=== PATIENT | male | born 1960 | race Caucasian/White ===

== ENCOUNTER 2019-08-13 01:45 | Inpatient (IN) | payer MEDICAID, OTHER ==
[~2019-08-13] VITALS: Ht 180.3 cm; Wt 70.4 kg
[2019-08-13] MEDS ORDERED: chlordiazePOXIDE 25mg capsule PO ONE (02:40)
[2019-08-13 03:02] LABS: BASOPHILS # (AUTO) 0.1 X10'3 (0-0.2); BASOPHILS % (AUTO) 0.6 % (0-1); EOSINOPHILS % (AUTO) 0.1 % (0-6); HEMATOCRIT 44.2 % (42.0-52.0); HEMOGLOBIN 15.4 g/dl (14.0-17.9); LYMPHOCYTES # (AUTO) 0.8 X10'3 (1.1-4.8); LYMPHOCYTES % (AUTO) 5.2 % (21-51); MEAN CORPUSCULAR HEMOGLOBIN 33.5 PG (27.0-31.0); MEAN CORPUSCULAR VOLUME 95.7 FL (78-98); MEAN PLATELET VOLUME 8.4 FL (7.4-10.4); MONOCYTES # (AUTO) 3.5 X10'3 (0-0.9); MONOCYTES % (AUTO) 21.6 % (2-12); NEUTROPHILS # (AUTO) 11.8 X10'3 (1.8-7.7); NEUTROPHILS % (AUTO) 72.5 % (42-75); PLATELET COUNT 330 X10'3 (140-440); RED BLOOD COUNT 4.62 X10'6 (4.70-6.10); RED CELL DISTRIBUTION WIDTH 13.2 % (11.5-14.5); WHITE BLOOD COUNT 16.3 X10'3 (4.5-11.0)
[2019-08-13 03:22] LABS: ALANINE AMINOTRANSFERASE 59 U/L (12-78); ALKALINE PHOSPHATASE 90 IU/L (46-116); ANION GAP 14 (8-16); ASPARTATE AMINO TRANSFERASE 56 U/L (10-37); BLOOD UREA NITROGEN 37 MG/DL (7-18); BUN/CREATININE RATIO 15.3 (5.4-32.0); CALCIUM 9.3 MG/DL (8.5-10.1); CHLORIDE 97 MMOL/L (99-107); CREATININE 2.42 MG/DL (0.60-1.10); GLUCOSE 97 MG/DL (70-104); POTASSIUM 3.3 MMOL/L (3.5-5.1); SODIUM 136 MMOL/L (135-145); TOTAL CARBON DIOXIDE 24.8 MMOL/L (24-32); eGFR 28 ML/MIN
--- NOTE | 2019-08-13 03:30 | NUR ---
Pt brought to overflow from ED after BIB [employer]. Pt disorganized and poor historian, often providing conflicting information. Pt states ge doesn't know how he got here, only he was in his home then had to go to the [place] "I had to start running from it, had to get away." Pt would not elaborate on what it was that he was running from, "Can't say". Pt has scrapes on arms, leg and chest, "Those are from tonight. I fell 12, maybe 15 times. It's the 'ole tuck n' roll, yeah know, 'sameer my ankle." IV started and labs obtained, Pt given Librium as alcohol withdrawal was initially suspected. Thought Process: Disorganized. Behavior: Cooperative. Pt denies psych hx and drug use. Denies allergies to any medication and states he doesn't take anything aside from flu medicine. Pt has a strong, intermittent cough that he states is from "getting over the flu a week ago." Medical Hx: R Ankle "needs replacement"; HTN "I take a 10mg pill." Pt is a poor historian. Pt has scrapes that are scabbed on his R Fernando, Bilateral Arms, and L chest - No signs of infection. No drainage. MH Hx: No known psych history Recreational Drugs: Denies all. Tox +: Amphetamines, THC. ETOH: States intake varies; "Could be 6 one evening, and then less later. Or even more." Social: Lives alone in [place] with his cat and dog. States he has a gf, Dhara, that lives in [place]. States he has children in [place] and [facility]. (Pt unable to provide contact infromation for stated connections.)
[2019-08-13 03:32] LABS: ETHANOL < 0.010 GM/DL (0.0-0.010)
[2019-08-13 03:52] LABS: URINE AMPHETAMINE SCREEN POSITIVE (Neg); URINE BARBITUATE SCREEN NEGATIVE (Neg); URINE BENZODIAZEPINES SCREEN NEGATIVE (Neg); URINE CANNABINOID SCREEN POSITIVE (Neg); URINE COCAINE SCREEN NEGATIVE (Neg); URINE METHADONE SCREEN NEGATIVE (Neg); URINE OPIATE SCREEN NEGATIVE (Neg); URINE PHENCYCLIDINE SCREEN NEGATIVE (Neg)
[2019-08-13] MEDS ORDERED: normal saline 1000ml 1,000 ML IV ONE (04:00)
[2019-08-13] MEDS ORDERED: CefTRIAXone/D5W-Rocephin 1gm 50 ML IV ONE (04:00)
[2019-08-13] MEDS ORDERED: azithromycin/NS 500mg/250ml 250 ML IV ONE (04:00)
[2019-08-13 04:26] LABS: CLARITY,URINE SLIGHTLY CLOUDY (Clear); GLUCOSE, URINE NEGATIVE (Neg); KETONES,URINE 15 mg/dl (Neg); LEUKOCYTE ESTERASE ,URINE NEGATIVE (Neg); NITRITES, URINE NEGATIVE (Neg); OCCULT BLOOD,URINE SMALL (Neg); PH,URINE 5.5 (4.8-8.0); PROTEIN,URINE NEGATIVE (Neg)
[2019-08-13 04:36] LABS: COLOR,URINE DARK YELLOW (Yellow); UA COLLECTION TYPE VOIDED
[2019-08-13 04:37] LABS: WBC,URINE 0-4 /HPF (0-4)
[2019-08-13 04:38] LABS: AMORPHOUS URATES 1+; BACTERIA,URINE FEW /HPF (Neg); HYALINE CASTS >30 /LPF (NEGATIVE); RBC,URINE 0-2 /HPF (0-2); SQUAMOUS EPITHELIAL CELL,UR FEW /LPF (FEW)
[2019-08-13 04:39] LABS: CAL OXALATE CRYSTALS FEW /HPF (NEGATIVE); COARSE GRANULAR CAST 0-3 /LPF (NEGATIVE); RENAL CELLS, URINE FEW /HPF; TRANSITIONAL EPI CELLS,URINE FEW /HPF
--- NOTE | 2019-08-13 04:43 | NUR ---
Pt transferred back to Main ED Bed #9 due to labs necessitating further testing.
[2019-08-13] MEDS ORDERED: NO HOME MEDS (04:48)
--- NOTE | 2019-08-13 04:55 | NUR ---
MOVED FROM OVERFLOW AREA TO BED 9 IN MAIN ER. PT TAKEN TO CT .
--- NOTE | 2019-08-13 05:39 | NUR ---
PT AWAITING HOSPITALIST
[2019-08-13] MEDS ORDERED: ondansetron/PF 4mg/2ml inj IV PRN (05:55)
[2019-08-13] MEDS ORDERED: potassium CL 10mEq/100ml bag 100 ML IV PRN (05:55)
[2019-08-13] MEDS ORDERED: potassium Cl 20 mEq SR tablet PO PRN ×2 (05:55)
[2019-08-13] MEDS ORDERED: magnesium Cl slow-release 64mg tablet PO PRN (05:55)
[2019-08-13] MEDS ORDERED: thiamine 100mg/ml 2ml inj. IV ONE (05:55)
[2019-08-13] MEDS ORDERED: magnesium 4gm in 100ml NS 100 ML IV PRN (05:55)
[2019-08-13] MEDS ORDERED: magnesium 2GM in 50ml NS 50 ML IV PRN (05:55)
[2019-08-13] MEDS: normal saline 1000ml 1,000 ML IV SCH ×3 (06:03→15:18)
[2019-08-13 07:15] LABS: PLATELET ESTIMATE NORMAL; TOTAL CELLS COUNTED 100
[2019-08-13] MEDS ORDERED: azithromycin 250mg tablet PO SCH (08:00)
[2019-08-13] MEDS: K and/or MAG REPLACEMENT MC SCH ×2 (08:00→20:00)
[2019-08-13] MEDS: heparin, porcine 5000 units/ml vial SQ SCH ×2 (08:28→19:20)
[2019-08-13] MEDS: potassium CL 10mEq/100ml bag 100 ML IV PRN ×4 (09:15→13:02)
--- NOTE | 2019-08-13 12:11 | NUR ---
Patient is sleeping. Respirations unlabored. NAD at this time.
--- NOTE | 2019-08-13 14:32 | NUR ---
Attempted to call report to Surgical Unit, no nurse assigned, asked to call back in 15 minutes.
--- NOTE | 2019-08-13 14:47 | NUR ---
Patient in room ED 9. I have received report from MAGDA Shaffer and had the opportunity to ask questions and assume patient care.
[2019-08-13 15:15] VITALS: BP 139/91
--- NOTE | 2019-08-13 15:55 | NUR ---
Pt arrived to the surgical floor at 1505 via gurney. Bed low and locked, call light placed within reach.
[2019-08-13 18:00] VITALS: BP 113/79
--- NOTE | 2019-08-13 18:15 | NUR ---
Problems reprioritized. Patient report given, questions answered & plan of care reviewed with MAGDA Chavez.
--- NOTE | 2019-08-13 23:57 | NUR ---
patient refusing vitals. will continue to monitor
[2019-08-14 05:25] LABS: BASOPHILS # (AUTO) 0.1 X10'3 (0-0.2); BASOPHILS % (AUTO) 0.9 % (0-1); EOSINOPHILS # (AUTO) 0.1 X10'3 (0-0.9); EOSINOPHILS % (AUTO) 0.9 % (0-6); HEMATOCRIT 38.4 % (42.0-52.0); HEMOGLOBIN 13.5 g/dl (14.0-17.9); LYMPHOCYTES # (AUTO) 1.4 X10'3 (1.1-4.8); LYMPHOCYTES % (AUTO) 15.7 % (21-51); MEAN CORPUSCULAR HEMOGLOBIN 33.9 PG (27.0-31.0); MEAN CORPUSCULAR HGB CONC 35.1 g/dL (33.0-36.5); MEAN CORPUSCULAR VOLUME 96.8 FL (78-98); MEAN PLATELET VOLUME 8.4 FL (7.4-10.4); MONOCYTES # (AUTO) 2.2 X10'3 (0-0.9); MONOCYTES % (AUTO) 25.1 % (2-12); NEUTROPHILS % (AUTO) 57.4 % (42-75); PLATELET COUNT 306 X10'3 (140-440); RED BLOOD COUNT 3.97 X10'6 (4.70-6.10); RED CELL DISTRIBUTION WIDTH 13.6 % (11.5-14.5); WHITE BLOOD COUNT 8.6 X10'3 (4.5-11.0)
[2019-08-14 06:06] LABS: PLATELET ESTIMATE NORMAL; TOTAL CELLS COUNTED 100
[2019-08-14 06:10] LABS: ALANINE AMINOTRANSFERASE 41 U/L (12-78); ALBUMIN 2.7 G/DL (3.4-5.0); ALBUMIN/GLOBULIN RATIO 0.8 (1.1-1.5); ALKALINE PHOSPHATASE 66 IU/L (46-116); ANION GAP 8 (8-16); ASPARTATE AMINO TRANSFERASE 36 U/L (10-37); BILIRUBIN,TOTAL 0.7 MG/DL (0.1-1.0); BLOOD UREA NITROGEN 14 MG/DL (7-18); BUN/CREATININE RATIO 17.9 (5.4-32.0); CALCIUM 8.1 MG/DL (8.5-10.1); CHLORIDE 107 MMOL/L (99-107); CREATININE 0.78 MG/DL (0.60-1.10); GLUCOSE 89 MG/DL (70-104); MAGNESIUM 1.7 MG/DL (1.5-2.4); POTASSIUM 3.6 MMOL/L (3.5-5.1); SODIUM 144 MMOL/L (135-145); TOTAL CARBON DIOXIDE 28.6 MMOL/L (24-32); TOTAL PROTEIN 5.9 G/DL (6.4-8.2); eGFR > 90 ML/MIN
--- NOTE | 2019-08-14 06:47 | NUR ---
Patient in room [facility]. I have received report from MAGDA PAZ and had the opportunity to ask questions and assume patient care.
[2019-08-14 07:00] VITALS: BP 135/83
[2019-08-14] MEDS: K and/or MAG REPLACEMENT MC SCH (08:00)
[2019-08-14] MEDS ORDERED: CefTRIAXone/D5W-Rocephin 1gm 50 ML IV SCH (08:00)
[2019-08-14] MEDS ORDERED: azithromycin 250mg tablet PO SCH (08:00)
[2019-08-14] MEDS: normal saline 1000ml 1,000 ML IV SCH (09:32)
[2019-08-14] MEDS: heparin, porcine 5000 units/ml vial SQ SCH (09:33)
[2019-08-14 11:00] VITALS: BP 144/89
[2019-08-14] MEDS ORDERED: LEVO500T2 PO (14:12)
--- NOTE | 2019-08-14 16:20 | NUR ---
Pt was previously on 5150/1798 while in hospital. He was then moved to surgical floor yesterday where 179/5150 is no longer valid per nursing sup/protocol. Pt decided to leave AMA, determined to get out of hospital. Security notified, Nursing sup notified. We were informed that patient cannot be held but security can follow pt down and [employer] can meet him at the door and re-evaluate need for new 5150. [facility] who was initially going to Eval him for transfer was contacted and Lila also confirmed that patient could be let go with [employer] notified and they will see need for new 5150. [facility] agreed to meet patient at [facility] and security escorted patient down. Dr Maldonado notifed throughout AMA process and updated on procedures for this type of discharge and results from [facility], [facility], nursing sup and security.
--- NOTE | 2019-08-14 16:30 | NUR ---
AROUND 1530 PATIENT STATED TO AN AIDE THAT HE WAS GOING TO LEAVE HE WAS DONE WAITING TO BE RELEASED, THAT HE NEEDED TO GET HOME TO FEED HIS ANIMALS AND DID NOT TRUST THE PEOPLE NEAR HIS HOUSE AND WAS FEARFUL THAT SOMEONE WAS GOING TO BREAK IN TO HIS HOUSE, CHARGE WAS NOTIFIED, SECURITY WAS CALLED AND CAME TO ROOM, DR AND NURSING ELECT[employer]RAFT[employer]ERSON WERE NOTIFIED, [facility] WAS CONTRACTED WELL, ALSO [employer] WAS CALLED DUE TO THE PATIENT BEING ON A 512 Addendum: 08/14/19 at 1937 by Radha Cowart RN 8100 HOLD WHILE IN ED, PATIENT WAS EDUCATED THAT HE COULD LEAVE BUT WOULD HAVE TO BE REEVALUATED BY [employer] AND WOULD BE MET BY THEM WHEN LEAVING THE UNIT, WAS GIVEN AN AMA FORM TO SIGN, PATIENT REFUSED TO SIGN, PATIENT LEFT UNIT ON FOOT WITH SECURITY FOLLOWING BEHIND
== END 2019-08-14 16:26 | disposition left against medical advice (07) | DRG 139 ==
LOC: ER 01:45 → ED HOLD 05:54 → UNDODISIN 15:30 → SUR 3N 15:50
PROVIDERS: ADMIT Internal Medicine; ATTEND Family Medicine
DX: J18.9 Pneumonia, unspecified organism (principal); G93.41 Metabolic encephalopathy; N17.9 Acute kidney failure, unspecified; Z88.1 Allergy status to other antibiotic agents; Z79.899 Other long term (current) drug therapy; F15.10 Other stimulant abuse, uncomplicated; Z53.29 Procedure and treatment not carried out because of patient's decision for other reasons
CPT/HCPCS: 36415; 70450; 71045; 80053; 80305; 80320; 81001; 82140; 83605; 83735; 84145; 84443; 85025; 87040; 87081; 93005; 97116; 97161; 97530; 99285; G0378; J0456; J0696; J1644; J3411; J3480; J7030

== ENCOUNTER 2021-09-15 14:45 | Emergency (ER) | payer MEDICAID, OTHER ==
[~2021-09-15] VITALS: Ht 180.3 cm; Wt 84.1 kg
[2021-09-15 15:15] VITALS: BP 102/80
== END 2021-09-15 16:04 | disposition home or self-care (01) ==
LOC: ER 14:45
DX: R45.6 Violent behavior (principal); Z72.89 Other problems related to lifestyle
CPT/HCPCS: 99283